=== PATIENT | female | born 1945 | race Caucasian/White ===

== ENCOUNTER 2019-12-02 15:48 | Outpatient (REF) | payer SELFPAY ==
[2019-12-02 17:05] LABS: Chol HDL Ratio 4.13 mg/dL (0.0-4.40); Cholesterol 285 mg/dL (0-200); Glucose 101 mg/dL (65-115); HDL Cholesterol 69 mg/dL (60-100); LDL Cholesterol Calculated 199 mg/dL (50-129); LDL HDL Ratio 2.88 RATIO (0.00-3.22); Triglycerides 85 mg/dL (0-150)
[2019-12-02 17:14] LABS: Estmated Average Glucose 111; Hemoglobin A1C 5.5 % (4.0-6.0)
== END 2019-12-02 15:49 | disposition home or self-care (01) ==
LOC: LAB 15:48
PROVIDERS: Family Provider Internal Medicine; PCP Internal Medicine; Visit Provider Dermatology
DX: Z13.9 Encounter for screening, unspecified (principal)
CPT/HCPCS: 80061; 82947; 83036

== ENCOUNTER 2021-02-20 06:42 | Outpatient (CLI) | payer MEDICARE, OTHER, SELFPAY ==
--- NOTE | 2021-02-20 07:09 | ECG_ITS ---
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 Interpretive Statements NAME OF STUDY: EXERCISE SESTAMIBI STRESS TEST INDICATION: Chest Pain, PROCEDURE: The baseline electrocardiogram showed normal sinus rhythm with normal ST-Ts. At the baseline, the patient's blood pressure was 159/85 mm Hg with a heart rate of 74/min. The patient exercised for 7 minutes and 6 seconds on a standard Cain protocol. Patient attained a maximum heart rate of 147 beats per minute( 100 % of the maximum predicted heart rate) with a blood pressure at the peak exercise of 208/62mm Hg. The EKG at the peak exercise revealed no significant changes. Patient did not have any chest pain or any significant arrhythmis with the exercise Sestamibi was injected 1 minute prior to the peak exercise During the recovery phase, there were no new changes. The blood pressure during the recovery phase went up to 248/64 Blood pressure at the end of the recovery phase was 153/77 mm Hg with a heart rate of 86 per minute. CONCLUSION: 1. No significant EKG changes with the [treadmill exercise 2. No exercise-induced chest pain or cardiac arrhythmia. Hypertensive response to exercise 3. Fair exercise tolerance, attained a maximum of 10.2 METs 4. Sestamibi/Sestamibi perfusion results pending; see separate report. Electronically Signed On 03-08-2021 20:04:27 CDT by Jaiden Mace M.D. [email or web address]
--- NOTE | 2021-02-20 07:10 | NMCV_ITS ---
NM benedicto perf SPECT r/s* [id number] Elsa Arellano Age: 75 Gender: F : 1945 Exam Date: 02/20/2021 08:10 Ordering Phys: Matt Carbajal DO Technologist: JOSE ELIAS Hollingsworth Exam Location: [facility] Indications: CHEST PAIN STRESS TEST Please see separate stress test report in [facility] for full findings IMAGE PROTOCOL Rest/Stress 1 Exercise Day Radiopharmaceutical Dose (mCi) Administration Site Administered by Rest: Tc-99m 10.7 IV JOSE ELIAS Hickman Sestamibi Stress:Tc-99m 32.9 IV JOSE ELIAS Hickman Sestamicristina Rest: 20-Feb-2021 60 Discovery 630 Stress: 20-Feb-2021 30 Discovery 630 Radiopharmaceutical was injected at 95 % maximum heart rate. Images obtained in supine and prone position. SPECT RESULTS Technical Quality: Excellent Raw Data Analysis: Normal Image Corrections: No attenuation or motion correction applied Summed Stress Score: 0 Summed Rest Score: 0 Summed Difference Score: 0 PERFUSION FINDINGS Fairly uniform myocardial tracer uptake; no significant perfusion of normalities. FUNCTIONAL RESULTS (calculated via Gated SPECT) Stress Image LV EF (%): 86 Stress EDV (mL):56 TID: 0.94 Stress ESV (mL):8 FUNCTIONAL FINDINGS: Segmental wall motion analysis revealing no gross wall motion normalities IMPRESSIONS 1. Unremarkable myocardial perfusion imaging. 2. Normal LV ejection fraction of 86%. 3. LV wall motion analysis revealing no gross wall motion normalities. 4. Normal LV volume. No significant coronary ischemia, based on the above findings Dr Jaiden Mace MD FACC (Electronically Signed) Final Date: 20 Feb 2021 16:55 S
[2021-02-20 09:17] VITALS: BP 153/77; PULSE 85
== END 2021-02-20 06:43 | disposition home or self-care (01) ==
LOC: CDL 06:49
PROVIDERS: PCP Internal Medicine; Visit Provider Internal Medicine
DX: R07.9 Chest pain, unspecified (principal)
CPT/HCPCS: 78452; 93017; A9500

== ENCOUNTER 2022-05-28 10:22 | Outpatient (CLI) | payer MEDICARE, OTHER, SELFPAY ==
--- NOTE | 2022-05-28 10:31 | MM_ITS ---
WS: [id number] BILATERAL SCREENING DIGITAL TOMOSYNTHESIS MAMMOGRAM WITH CAD HISTORY: SCREENING COMPARISON: 07/20/2021 and 06/23/2020 Bilateral CC and MLO views with tomosynthesis and synthetic mammography submitted. Computer aided det ection analyzed. Breast composition: There are scattered areas of fibroglandular density. No suspicious masses, microc alcifications or architectural distortion. Benign LEFT breast calcifications. MM/[place] [id number] IMPRESSION: BI-RADS: 2-Benign FOLLOW UP: 1 Year Follow-up
== END 2022-05-28 10:23 | disposition home or self-care (01) ==
PROVIDERS: PCP Internal Medicine; Visit Provider Internal Medicine
DX: Z12.31 Encounter for screening mammogram for malignant neoplasm of breast (principal)
CPT/HCPCS: 77063; 77067

== ENCOUNTER → 2023-01-28 14:42 | Outpatient (BNVA) | payer MEDICARE, OTHER, SELFPAY | PROVIDERS: PCP Internal Medicine; Visit Provider Dermatology | DX: L82.1 Other seborrheic keratosis (principal); D18.01 Hemangioma of skin and subcutaneous tissue; L81.4 Other melanin hyperpigmentation | CPT/HCPCS: 99213 ==

== ENCOUNTER 2023-02-07 12:59 | Outpatient (CLI) | payer MEDICARE, OTHER, SELFPAY ==
--- NOTE | 2023-02-07 13:11 | USCV_ITS ---
Elsa Arellano Age: 77 Gender: F : 1945 Exam Date: 02/07/2023 13:33 Ordering Phys: Matt Carbajal DO Technologist: CT Exam Location: [facility] [place] Indication: cp BP: 135 / 70 HR: 75 Rhythm: Sinus Technical Quality: Adequate MEASUREMENTS (Male / Female) Normal Values 2D ECHO LV Diastolic Diameter PLAX 3.8 cm 4.2 - 5.9 / 3.9 - 5.3 cm LV Systolic Diameter PLAX 3.2 cm IVS Diastolic Thickness 0.9 cm 0.6 - 1.0 / 0.6 - 0.9 cm IVS Systolic Thickness 1.4 cm LVPW Diastolic Thickness 1.2 cm 0.6 - 1.0 / 0.6 - 0.9 cm LVPW Systolic Thickness 1.4 cm LVOT Diameter 2.0 cm LV Ejection Fraction 2D Teich 15.3 % LV Ejection Fraction MOD 2C 62.1 % LV Ejection Fraction 2C AL 63.0 % LA Diameter 3.3 cm Aorta at Sinotubular Diameter 2.3 cm IVC Diameter 1.2 cm M-MODE Aortic Annulus Diameter 3.0 cm LA Ao Ratio MM 1.2 MV E Point Septal Separation 0.4 cm DOPPLER AV Peak Velocity 130.0 cm/s LVOT Peak Velocity 131.0 cm/s AV Area Cont Eq vti 3.2 cm squared AV Area Cont Eq pk 3.2 cm squared MV Peak Velocity 161.0 cm/s MV Area PHT 3.3 cm squared Mitral E to A Ratio 0.6 MV E' Velocity 44.0 cm/s Mitral E to MV E' Ratio 8.6 Mitral E to LV E' Lateral Ratio 10.1 Mitral E to LV E' Septal Ratio 7.5 TR Peak Velocity 140.6 cm/s TR Peak Gradient 7.9 mmHg TR Mean Velocity 101.1 cm/s TR Mean Gradient 4.8 mmHg TR Velocity Time Integral 28.7 cm TV Peak E Velocity 82.0 cm/s PV Peak Velocity 97.0 cm/s FINDINGS Left Ventricle Normal left ventricular size, systolic function and wall thickness, with no regional wall motion abnormalities. Grade I/IV diastolic dysfunction (abnormal relaxation filling pattern), normal to mildly elevated filling pressures. Left ventricular ejection fraction is estimated at 65 %. Right Ventricle Normal right ventricular size and systolic function. Right Atrium The right atrium is normal in size. Left Atrium The left atrium is normal in size. Mitral Valve Structurally normal mitral valve. Trace mitral valve regurgitation. Aortic Valve Structurally normal aortic valve without significant sclerosis or stenosis. There is no aortic regurgitation. Tricuspid Valve Structurally normal tricuspid valve. Trace tricuspid valve regurgitation. Pulmonic Valve Pulmonic valve not well visualized. Pericardium Normal pericardium without effusion. Aorta Normal ascending aorta dimension. IVC The inferior vena cava appears normal. CONCLUSIONS Normal left ventricular size, systolic function and wall thickness, with no regional wall motion abnormalities. Grade I/IV diastolic dysfunction (abnormal relaxation filling pattern), normal to mildly elevated filling pressures. Left ventricular ejection fraction is estimated at 65 %. Structurally normal mitral valve. Trace mitral valve regurgitation. There are no prior echocardiogram studies to compare. Dr. Heron Lemos MD (Electronically Signed) Final Date: 08 Feb 2023 09:28 S
== END 2023-02-07 13:00 | disposition home or self-care (01) ==
LOC: RAD 13:05
PROVIDERS: PCP Internal Medicine; Visit Provider Internal Medicine
DX: R07.89 Other chest pain (principal)
CPT/HCPCS: 93306

== ENCOUNTER 2023-02-14 06:37 | Outpatient (CLI) | payer MEDICARE, OTHER, SELFPAY ==
--- NOTE | 2023-02-14 | ECG_ITS ---
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 Interpretive Statements NAME OF STUDY: EXERCISE SESTAMIBI STRESS TEST INDICATION: Cp on exertion, PROCEDURE: The baseline electrocardiogram showed normal sinus rhythm with normal ST-Ts. At the baseline, the patient's blood pressure was 126/61 mm Hg with a heart rate of 75. The patient exercised for 7 minutes and 13 seconds on a standard Cain protocol. Patient attained a maximum heart rate of 144 beats per minute(99% of the maximum predicted heart rate) with a blood pressure at the peak exercise of 175/42 mm Hg. The EKG at the peak exercise revealed no significant changes. Patient did not have any chest pain or any significant arrhythmis with the exercise Sestamibi was injected 1 minute prior to the peak exercise During the recovery phase, there were no new changes. Blood pressure at the end of the recovery phase was 138/54 mm Hg with a heart rate of 92 per minute. CONCLUSION: 1. No significant EKG changes with the treadmill exercise 2. No exercise-induced chest pain or cardiac arrhythmia 3. Fair exercise tolerance, attained a maximum of 10.2 METs 4. Sestamibi/Sestamibi perfusion results pending; see separate report. Electronically Signed On 02-21-2023 20:10:25 CDT by Jaiden Mace M.D. [id number]
[2023-02-14 06:45] VITALS: BMI 24.0
--- NOTE | 2023-02-14 07:01 | NMCV_ITS ---
NM benedicto perf SPECT r/s* [id number] Elsa Arellano Age: 77 Gender: F : 1945 Exam Date: 02/14/2023 08:03 Ordering Phys: Matt Carbajal DO Technologist: JOSE ELIAS Hollingsworth Exam Location: [facility] Indications: CHEST PAIN STRESS TEST [facility] IMAGE PROTOCOL Rest/Stress 1 Exercise Day Radiopharmaceutical Dose (mCi) Administration Site Administered by Rest: Tc-99m 10.8 IV David Reid, [employer] Sestamibi Stress:Tc-99m 32.9 IV JOSE ELIAS Hollingsworth Sestamibi Rest: 14-Feb-2023 60 Discovery 630 Stress: 14-Feb-2023 30 Discovery 630 Radiopharmaceutical was injected at 91 % maximum heart rate. Images obtained in supine and prone position. SPECT RESULTS Technical Quality: Excellent Raw Data Analysis: Normal Image Corrections: No attenuation or motion correction applied Summed Stress Score: 0 Summed Rest Score: 4 Summed Difference Score: 0 PERFUSION FINDINGS A small area of slightly decreased tracer uptake was noted in the mid inferolateral and apical lateral region, rest. Uniform Som recently was noted with a stress both in the supine and prone images FUNCTIONAL RESULTS (calculated via Gated SPECT) Stress Image LV EF (%): 88 Stress EDV (mL):48 TID: 0.88 Stress ESV (mL):6 FUNCTIONAL FINDINGS: Segmental wall motion analysis revealing no gross wall motion abnormalities IMPRESSIONS 1. Myocardial perfusion imaging revealing fairly uniform myocardial tracer uptake with a small area of possible attenuation artifact in the inferolateral and apical lateral regions. 2. Normal LV ejection fraction of 80%. 3. LV wall motion analysis revealing no gross wall motion abnormalities. 4. Normal LV volume Low probability for coronary ischemia, based on the above findings. Compared to the study from 02/20/2021, there may not be a significant change Dr Jaiden Mace MD FACC (Electronically Signed) Final Date: 14 Feb 2023 13:16 S
[2023-02-14 09:11] VITALS: BP 138/54; PULSE 92
== END 2023-02-14 06:38 | disposition home or self-care (01) ==
LOC: CDL 06:41
PROVIDERS: PCP Internal Medicine; Visit Provider Internal Medicine
DX: R07.89 Other chest pain (principal)
CPT/HCPCS: 36415; 78452; 93017; A9500

== ENCOUNTER 2023-06-27 15:04 | Outpatient (CLI) | payer MEDICARE, OTHER, SELFPAY ==
--- NOTE | 2023-06-27 15:18 | MM_ITS ---
WS: [id number] BILATERAL 3D TOMOSYNTHESIS DIGITAL SCREENING MAMMOGRAPHY WITH CAD CLINICAL INFORMATION: SCREENING HISTORY: Screening mammogram. No current complaints. COMPARISON: 2021 TECHNIQUE: Bilateral CC and MLO views. FINDINGS: Scattered fibroglandular densities bilaterally. No suspicious focal mass, asymmetry, calcifications, or architectural distortion. No evidence of malignancy. Incidental punctate and coarse calcifications LEFT breast. IMPRESSION: MM/[place] [id number] BI-RADS: 2-Benign FOLLOW UP: 1 Year Follow-up Recommend return to annual screening mammography.
== END 2023-06-27 15:05 | disposition home or self-care (01) ==
PROVIDERS: PCP Internal Medicine; Visit Provider Internal Medicine
DX: Z12.31 Encounter for screening mammogram for malignant neoplasm of breast (principal)
CPT/HCPCS: 77063; 77067

== ENCOUNTER 2024-07-13 10:40 | Outpatient (CLI) | payer MEDICARE, OTHER, SELFPAY ==
--- NOTE | 2024-07-13 10:42 | MM_ITS ---
WS: [id number] BILATERAL 3D TOMOSYNTHESIS DIGITAL SCREENING MAMMOGRAPHY WITH CAD CLINICAL INFORMATION: SCREENING HISTORY: Screening mammogram. No current complaints. COMPARISON: 2022 TECHNIQUE: Bilateral CC and MLO views. FINDINGS: Scattered fibroglandular densities bilaterally. No suspicious focal mass, asymmetry, calcifications, or architectural distortion. No evidence of malignancy. Clustered punctate calcifications LEFT breast . MM/MM scr tomosynthesis [id number] IMPRESSION: DENSITY: There are scattered areas of fibroglandular density. BI-RADS: 2 - Benign. FOLLOW UP: 1 Year Follow-up Recommend return to annual screening mammography.
== END 2024-07-13 10:41 | disposition home or self-care (01) ==
LOC: RAD 10:40
PROVIDERS: PCP Internal Medicine; Visit Provider Internal Medicine
DX: Z12.31 Encounter for screening mammogram for malignant neoplasm of breast (principal)
CPT/HCPCS: 77063; 77067

== ENCOUNTER 2025-02-17 07:50 | Outpatient (CLI) | payer MEDICARE, OTHER, SELFPAY ==
--- NOTE | 2025-02-17 08:11 | MR_ITS ---
WS: [id number] MRI LUMBAR SPINE NONCONTRAST TECHNIQUE: Sagittal T1, T2 and STIR imaging. Axial T1 and T2 imaging. CLINICAL INFORMATION: LUMBAR HNP COMPARISON: None. FINDINGS: Mild lumbar curve. No acute compression. Slightly heterogeneous bone marrow signal throughout the lumbar spine and sacrum likely due to osteoporosis. A few atypical hemangiomas. No acute compression fractures. Disc bulging worse at L3-L5. L1-L2: Normal. L2-L3: Mild annular bulging. Moderate central canal stenosis. Impingement of the traversing L3 nerve roots. Mild facet arthropathy. Foramen are patent. L3-L4: Central disc protrusion with moderate central canal stenosis. Impingement of traversing L4 nerve roots. Moderate facet arthropathy. Mild LEFT greater than RIGHT foraminal narrowing. L4-L5: Central LEFT paracentral disc protrusion impinges the traversing LEFT L5 nerve root in the subarticular recess. Moderate central canal stenosis. Moderate facet arthropathy. Mild LEFT foraminal narrowing. L5-S1: Mild disc bulging with shallow central and RIGHT paracentral protrusion. Slight contact of the traversing S1 nerve roots. Mild facet arthropathy. Foramen are patent. Visualized pelvic bony structures: Normal. Paravertebral soft tissues: Normal. LEFT renal cyst. MR/MR lumbar spine wo con* [id number] IMPRESSION: 1. Moderate central canal stenosis L2-L3 L3-L4 and L4-L5 described above. 2. Disc protrusion with impingement on the LEFT subarticular recess L4-5 and t raversing LEFT L5 nerve root. 3. Central and RIGHT paracentral protrusion L5-S1 with slight impingement on t he traversing RIGHT greater than LEFT S1 nerve roots. 4. Moderate facet arthropathy L3-L4 and L4-L5.
== END 2025-02-17 07:51 | disposition home or self-care (01) ==
PROVIDERS: PCP Family Medicine; Visit Provider Family Medicine
DX: M51.26 Other intervertebral disc displacement, lumbar region (principal); M48.061 Spinal stenosis, lumbar region without neurogenic claudication; M51.27 Other intervertebral disc displacement, lumbosacral region; M47.896 Other spondylosis, lumbar region; M43.8X6 Other specified deforming dorsopathies, lumbar region; R93.7 Abnormal findings on diagnostic imaging of other parts of musculoskeletal system; D18.09 Hemangioma of other sites; M51.369 Other intervertebral disc degeneration, lumbar region without mention of lumbar back pain or lower extremity pain; M51.379 Other intervertebral disc degeneration, lumbosacral region without mention of lumbar back pain or lower extremity pain; M47.897 Other spondylosis, lumbosacral region; N28.1 Cyst of kidney, acquired
CPT/HCPCS: 72148

== ENCOUNTER 2025-07-18 09:16 | Outpatient (CLI) | payer MEDICARE, OTHER, SELFPAY ==
--- NOTE | 2025-07-18 09:23 | MM_ITS ---
WS: [id number] BILATERAL SCREENING DIGITAL TOMOSYNTHESIS MAMMOGRAM WITH CAD HISTORY: SCREENING COMPARISON: 07/13/2024, 06/27/2023, Bilateral CC and MLO views with tomosynthesis and synthetic mammography submitted. Computer aided detection analyzed. Breast composition: There are scattered areas of fibroglandular density. No suspicious masses, microcalcifications or architectural distortion. Benign calcification central LEFT breast. MM/MM scr BI tomosynthesis [id number] IMPRESSION: BI-RADS: 2 - Benign. FOLLOW UP: 1 Year Follow-up
== END 2025-07-18 09:17 | disposition home or self-care (01) ==
LOC: RAD 09:17
PROVIDERS: PCP Family Medicine; Visit Provider Family Medicine
DX: Z12.31 Encounter for screening mammogram for malignant neoplasm of breast (principal); R92.323 Mammographic fibroglandular density, bilateral breasts; R92.1 Mammographic calcification found on diagnostic imaging of breast
CPT/HCPCS: 77063; 77067